=== PATIENT | female | born 1970 | race Two or more races ===

== ENCOUNTER 2025-04-22 07:30 | Emergency (ER) | payer OTHER ==
[~2025-04-22] VITALS: Ht 170.2 cm; Wt 84.0 kg
[2025-04-22 07:42] VITALS: BP 101/64; PULSE 73; RESP 16; TEMP 97.6; O2SAT 97
--- NOTE | 2025-04-22 07:54 | ED.PDOC ---
HPI (NEURO) HPI Comments 54-year-old female, brought in by ambulance, presents to the emergency department for chief complaint of dizziness. EMS reports patient is coming from home where she c/o dizziness along with fluctuating blood pressure readings. Patient states, she has been experiencing reoccurring episodes of dizziness x1.5 years. 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 Upon arrival to the Ed, patient's blood pressure read at 101/64mmHg all other VS are WNL. 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 Family History Family History: Family hx of heart heather Social History Smoker: Non-Smoker Alcohol: Denies ETOH Use Drugs: Denies Drug Use Lives In: Home Constitutional: denies: chills, diaphoresis, fatigue, fever, malaise, sweats, weakness, others EENTM: denies: blurred vision, double vision, ear bleeding, ear discharge, ear drainage, ear pain, ear ringing, eye pain, eye redness, hearing loss, mouth pain, mouth swelling, nasal discharge, nose bleeding, nose congestion, nose pain, photophobia, tearing, throat pain, throat swelling, voice changes, others Respiratory: denies: cough, hemoptysis, orthopnea, SOB at rest, shortness of breath, SOB with excertion, stridor, wheezing, others Cardiovascular: denies: chest pain, dizzy spells, diaphoresis, Dyspnea on exertion, edema, irregular heart beat, left arm pain, lightheadedness, palpitations, PND, syncope, others Gastrointestinal: denies: abdomen distended, abdominal pain, blood streaked bowels, constipated, diarrhea, dysphagia, difficulty swallowing, hematemesis, melena, nausea, poor appetite, poor fluid intake, rectal bleeding, rectal pain, vomiting, others Genitourinary: denies: abnormal vagina bleeding, burning, dyspareunia, dysuria, flank pain, frequency, hematuria, incontinence, pain, , vagina discharge, urgency, others Neurological: reports: dizziness; denies: fainting, headache, left sided numbness, left sided weakness, numbness, paresthesia, pre-existing deficit, right sided numbness, right sided weakness, seizure, speech problems, tingling, tremors, weakness, others Musculoskeletal: denies: back pain, gout, joint pain, joint swelling, muscle pain, muscle stiffness, neck pain, others Integumetry: denies: bruises, change in color, change in hair/nails, dryness, laceration, lesions, lumps, rash, wounds, others Allergic/Immunocompromised: denies: Difficulty Healing, Frequent Infections, Hives, Itching, others Hematologic/Lymphatic: denies: anemia, blood clots, easy bleeding, easy bruising, swollen glands, others Endocrine: denies: excessive hunger, excessive sweating, excessive thirst, excessive urination, flushing, intolerance to cold, intolerance to heat, unexplained weight gain, unexplained weight loss, others Psychiatric: denies: anxiety, bipolar disorder, depression, hopeless, panic disorder, schizophrenia, sleepless, suicidal, others All Other Systems: Reviewed and Negative Physical Exam General Appearance: Moderate Distress HEENT: Normal ENT Inspection, Pharynx Normal, TMs Normal Neck: Full Range of Motion, Non-Tender, Normal, Normal Inspection Respiratory: Chest Non-Tender, Lungs Clear, No Accessory Muscle Use, No Respiratory Distress, Normal Breath Sounds Cardiovascular: No Edema, No JVD, No Murmur, No Gallop, Normal Peripheral Pulses, Regular Rate/Rhythm Breast Exam: Deferred Gastrointestinal: No Organomegaly, Non Tender, No Pulsatile Mass, Normal Bowel Sounds, Soft Genitalia: Deferred Pelvic: Deferred Rectal: Deferred Extremities: No calf tenderness, Normal capillary refill, Normal inspection, Normal range of motion, Non-tender, No pedal edema Musculoskeletal : Apperance: Normal Neurologic: Alert, disc pad grinding machine feeder II-XII nml as Tested, No Motor Deficits, Normal Affect, Normal Mood, No Sensory Deficits Cerebellar Function: Normal Reflexes: Normal Skin: Dry, Normal Color, Warm Peripheral Pulses: 3+ Radial (R), 3+ Radial (L) Lymphatic: No Adenopathy Was a procedure done? Was a procedure done?: No Differential Diagnosis (SZ) Seizure: Psychogenic Seizure, Anticonvulsant Withdrawl, CVA/TIA General Weakness: Hypotension, Vertigo: central, Vertigo: peripheral X-Ray, Labs, Meds, VS Vital Signs Date Time Temp Pulse Resp B/P (MAP) Pulse Ox O2 Delivery O2 Flow Rate FiO2 04/22/25 07:42 97.6 73 16 101/64 97 97.6 04/22/25 07:35 82 Lab Test 04/22/25 07:36 Range/Units POC Glucose 66 L 70-106 mg/dl Patient alert. Complaining of dizziness. Blood sugar on the low side. Vitals stable. Answering questions. EKG reviewed does not show any acute changes. Has a chronic history. Explained to the patient. Continue monitoring. Time of 1ST Reevaluation: 08:20 Reevaluation 1ST: Unchanged Patient Education/Counseling: Diagnosis, Treatment Family Education/Counseling: No Family Present Departure 1 Departure Time of Disposition: 08:15 Impression: Primary Impression: Hypoglycemia Additional Impression: Autonomic disorder Disposition: 30 STILL A PATIENT Condition: Good Critical Care Note Critical Care Time?: Yes (90 min-critical care time only) Stability Stability form required: No Heart Score Heart Score: Heart Score Response (Comments) Value History Slightly Suspicious 0 EKG Normal 0 Age 45-64 1 Risk Factors 1 or 2 risk factors 1 Troponin N/A 0 Total 2 I personally scribed for JHONNY SAMAYOA MD ([email or web address]) on 04/22/25 at 07:54. Electronically submitted by Aliza Jacobs [email or web address]). I personally scribed for JHONNY SAMAYOA MD ([email or web address]) on 04/22/25 at 07:59. Electronically submitted by Aliza Jacobs ([email or web address]). JHONNY SAMAYOA MD Apr 22, 2025 07:54
== END 2025-04-22 07:57 | disposition left against medical advice (07) ==
LOC: ER 07:30 → EDBD 07:30 → ER 07:57
DX: E16.2 Hypoglycemia, unspecified (principal); G90.9 Disorder of the autonomic nervous system, unspecified
CPT/HCPCS: 82947; 82962